=== PATIENT | male | born 1950 | race Caucasian/White ===

== ENCOUNTER 2020-08-19 11:24 | Outpatient (CLI) | payer OTHER ==
[~2020-08-19 11:24] MED LIST: DIOVAN HCT 1601 EACH PO; LIPITOR20 MG PO; METROPOLOL PO
== END 2020-08-19 11:29 | disposition home or self-care (01) ==
LOC: SONOGRAMA 11:24
PROVIDERS: ATTEND Urology
DX: N20.0 Calculus of kidney (principal)